=== PATIENT | female | born 1980 | race Asian ===

== ENCOUNTER 2017-11-30 12:10 | Inpatient (IN) | payer OTHER ==
[2017-11-30] MEDS ORDERED: ELECTROLYTE-148 SOLN 1,000 ML IV ONE (12:20)
[2017-11-30 13:13] VITALS: BMI 36.9
[2017-11-30] MEDS ORDERED: ELECTROLYTE-148 SOLN 1,000 ML IV SCH (13:20)
[2017-11-30] MEDS ORDERED: CITRIC ACID/SODIUM CITRATE 30 ML UNIT-DOSE CUP PO ONE (13:45)
[2017-11-30] MEDS ORDERED: OXYTOCIN 20 UNITS in 0.9% NS 20 UNIT/1,000 ML INFUS.BAG IV ONE ×2 (14:05→14:06)
[2017-11-30] MEDS ORDERED: ONDANSETRON 4 MG/2 ML VIAL IVPUSH PRN (14:08)
--- NOTE | 2017-11-30 14:08 | HP ---
Past Medical History - Admission Chief Complaint: Elective History of Present Illness: 37 yo @ 39 weeks gestation, with previous , is pre op for repeat C -Section. History Source: Patient Limitations to Obtaining History: No Limitations - Past Medical History ...: 4 ...Para: 2 ...Term: 2 ...: 0 ...Spon : 1 ...Induced : 0 ...Multiple Gestation: 0 ...LMP: 03/09/17 ... Weeks Gestation by Dates: 38.0 ...EDC by Dates: 12/14/17 ...EDC by Sono: 12/07/17 - Past Surgical History Past Surgical History: Yes: Hx Myomectomy: No Hx Transabdominal Cerclage: No - Smoking History Smoking history: Never smoked Have you smoked in the past 12 months: No - Alcohol/Substance Use Hx Alcohol Use: No History of Substance Use: reports: None - Social History Usual Living Arrangement: Yes: With Spouse History of Recent Travel: No Home Medications - Allergies Allergies/Adverse Reactions: Allergies Allergy/AdvReac Type Severity Reaction Status Date / Time No Known Allergies Allergy Verified 11/30/17 13:27 - Home Medications Home Medications: Ambulatory Orders Vit/Iron Fum/Folic AC [ Tablet] 1 each PO DAILY 02/14/14 Insulin (LOG) Aspart [NovoLOG -] 4 units SQ PRN 11/08/17 Levothyroxine Sodium [Synthroid] 137 mcg PO DAILY 11/15/17 Family Disease History - Family Disease History Family History: Unremarkable Review of Systems - Review of Systems Constitutional: reports: No Symptoms Eyes: reports: No Symptoms HENT: reports: No Symptoms Neck: reports: No Symptoms Cardiovascular: reports: No Symptoms Respiratory: reports: No Symptoms Gastrointestinal: reports: No Symptoms Genitourinary: reports: No Symptoms Breasts: reports: No Symptoms Reported Musculoskeletal: reports: No Symptoms Integumentary: reports: No Symptoms Neurological: reports: No Symptoms Endocrine: reports: No Symptoms Hematology/Lymphatic: reports: No Symptoms Psychiatric: reports: No Symptoms Pain Intensity: 0 Physical Exam - Maternity Vital Signs: Vital Signs Temperature 98.3 F 11/30/17 12:30 Pulse Rate 90 11/30/17 12:30 Respiratory Rate 18 11/30/17 12:30 Blood Pressure 109/69 11/30/17 12:30 O2 Sat by Pulse Oximetry (%) Constitutional: Yes: Well Nourished Neck: Yes: Supple Cardiovascular: Yes: Regular Rate and Rhythm Lungs: Clear to auscultation Breast(s): Yes: WNL - Abdominal Exam/OB Number of Fetuses: Single Presentation: Vertex Contractions: No - Vaginal Exam/OB Vaginal Bleediing: No - Physical Exam ...Motor Strength: WNL Psychiatric: Yes: Alert, Oriented Problem List - Problems (1) Previous section complicating , antepartum condition or complication Code(s): O34.219 - MATERNAL CARE FOR UNSP TYPE SCAR FROM PREVIOUS DEL Assessment/Plan Elective Pre op for repat Consent signed Anesthesia to see patient
[2017-11-30] MEDS ORDERED: morphine SULFATE/Preservative Free 0.5 MG/ML (1cc Syringe) ONE (14:26)
[2017-11-30] MEDS ORDERED: BUPIVACAINE 0.75% IN DEXTROSE/PF 2ML AMPULE NR ONE (14:27)
[2017-11-30] MEDS ORDERED: ceFAZolin SODIUM 1 GM VIAL ONE (14:41)
[2017-11-30] MEDS ORDERED: METHYLERGONOVINE MALEATE 0.2 MG/1 ML AMP IM PRN (15:25)
--- NOTE | 2017-11-30 15:29 | OP ---
Operative Note - Note: Operative Date: 11/30/17 Pre-Operative Diagnosis: Electve / Multiparity Operation: Repeat Low Transverse / Bilateral Tubal ligation Findings: Baby girl in cephallic position Post-Operative Diagnosis: Same as Pre-op Surgeon: Aleisha Higginbotham Rug Cutter: Walter Lindo Anesthesia: Spinal Specimens Removed: Placenta Estimated Blood Loss (mls): 500
[2017-11-30] MEDS ORDERED: OXYTOCIN 20 UNITS in 0.9% NS 20 UNIT/1,000 ML INFUS.BAG IV SCH (15:30)
[2017-11-30] MEDS ORDERED: TUBERCULIN PPD 5 TU/0.1ML SYRINGE (IN PATIENT USE ONLY) ID ONE (17:00)
[2017-11-30] MEDS: IBUPROFEN 800 MG/8 ML IJ IVPB PRN (18:28)
[2017-12-01 07:36] LABS: BASO % 0.3 % (0-2.0); EOS % 0.5 % (0-4.5); HEMOGLOBIN 8.2 GM/dL (10.7-15.3); LYMPH % 14.3 % (8-40); MCH 23.9 pg (25.7-33.7); MCHC 32.8 g/dl (32.0-36.0); MEAN CELL VOLUME 72.9 fl (80-96); MEAN PLT VOLUME 9.6 fl (7.5-11.1); MONO % 5.1 % (3.8-10.2); NEUT % 79.8 % (42.8-82.8); PLATELET COUNT 222 K/MM3 (134-434); RBC 3.43 M/mm3 (3.60-5.2); RDW 16.7 % (11.6-15.6); WHITE BLOOD COUNT 8.9 K/mm3 (4.0-10.0)
[2017-12-01] MEDS: IBUPROFEN 800 MG/8 ML IJ IVPB PRN (08:13)
--- NOTE | 2017-12-01 08:54 | PN ---
Progress Note (short form) - Note Progress Note: POD #1 - s/p repeat /BTL under spinal with duramorph. VSS. Pt. doing well, resting comfortably in bed. C/o some pruritis which has been relieved with benadryl. Good pain control. No apparent anesthetic complications noted. Continue current care.
[2017-12-01] MEDS: LEVOTHYROXINE 112 MCG, LEVOTHYROXINE 25 MCG PO SCH (09:14)
[2017-12-01] MEDS ORDERED: oxyCODONE HCL 5 MG TABLET PO PRN (12:34)
[2017-12-01] MEDS: oxyCODONE HCL 5 MG TABLET PO PRN ×3 (13:02→23:29)
[2017-12-01] MEDS: SIMETHICONE 80 MG TAB.CHEW (FP) PO PRN ×3 (13:03→23:29)
[2017-12-01] MEDS ORDERED: DIPHTH,PERTUSS(ACELL),TET 0.5 ML DISP.SYRIN IM ONE (14:00)
[2017-12-01] MEDS ORDERED: BISACODYL 10 MG SUPP.RECT RC PRN (15:26)
--- NOTE | 2017-12-01 21:48 | PN ---
Post Progress Note - Subjective Subjective: 37 yo Para 3, status post repeat , seen and evaluated. Doing well. Post Day: 1 Type of Delivery: Repeat C/S Vital Signs: Vital Signs Temperature 98.6 F 12/01/17 14:00 Pulse Rate 85 12/01/17 14:00 Respiratory Rate 20 12/01/17 18:00 Blood Pressure 105/62 12/01/17 14:00 O2 Sat by Pulse Oximetry (%) 100 11/30/17 16:35 Breast Exam: Yes: Soft Uterus: Yes: Fundus Firm Incision: Yes: Dressing dry and intact Abdomen/GI: Yes: Abdomen soft, Tolerating PO Lochia: Yes: Rubra Lochia, amount: Small Extremities: Yes: Calves non-tender Perineum: Yes: Intact Activity: Ambulating - Labs Labs: CBC WBC 8.9 K/mm3 (4.0-10.0) 12/01/17 06:55 RBC 3.43 M/mm3 (3.60-5.2) L 12/01/17 06:55 Hgb 8.2 GM/dL (10.7-15.3) L D 12/01/17 06:55 Hct 25.0 % (32.4-45.2) L 12/01/17 06:55 MCV 72.9 fl (80-96) L 12/01/17 06:55 MCH 23.9 pg (25.7-33.7) L 12/01/17 06:55 MCHC 32.8 g/dl (32.0-36.0) 12/01/17 06:55 RDW 16.7 % (11.6-15.6) H 12/01/17 06:55 Plt Count 222 K/MM3 (134-434) D 12/01/17 06:55 MPV 9.6 fl (7.5-11.1) 12/01/17 06:55 Absolute Neuts (auto) 7.1 # 12/01/17 06:55 Neutrophils % 79.8 % (42.8-82.8) 12/01/17 06:55 Lymphocytes % 14.3 % (8-40) 12/01/17 06:55 Monocytes % 5.1 % (3.8-10.2) 12/01/17 06:55 Eosinophils % 0.5 % (0-4.5) 12/01/17 06:55 Basophils % 0.3 % (0-2.0) 12/01/17 06:55 Nucleated RBC % 0 % (0-0) 12/01/17 06:55 Problem List - Problems (1) Previous section complicating , antepartum condition or complication Code(s): O34.219 - MATERNAL CARE FOR UNSP TYPE SCAR FROM PREVIOUS DEL (2) Status post repeat low transverse section Code(s): Z98.891 - HISTORY OF UTERINE SCAR FROM PREVIOUS SURGERY Assessment/Plan Status post repeat Stable Ambulation Analgesia as needed Continue routine post op care
--- NOTE | 2017-12-02 05:28 | PN ---
Post Progress Note - Subjective Subjective: 37 yo Para 3 status post repeat , seen and evaluated. Doing well. Post Day: 2 Type of Delivery: Repeat C/S Vital Signs: Vital Signs Temperature 98.4 F 12/01/17 22:00 Pulse Rate 80 12/01/17 22:00 Respiratory Rate 18 12/01/17 22:00 Blood Pressure 110/67 12/01/17 22:00 O2 Sat by Pulse Oximetry (%) 100 11/30/17 16:35 Breast Exam: Yes: Soft Uterus: Yes: Fundus @ umbilicus Incision: Yes: Dressing dry and intact Abdomen/GI: Yes: Abdomen soft, Tolerating PO Lochia: Yes: Rubra Lochia, amount: Small Extremities: Yes: Calves non-tender Perineum: Yes: Intact Activity: Ambulating - Labs Labs: CBC WBC 8.9 K/mm3 (4.0-10.0) 12/01/17 06:55 RBC 3.43 M/mm3 (3.60-5.2) L 12/01/17 06:55 Hgb 8.2 GM/dL (10.7-15.3) L D 12/01/17 06:55 Hct 25.0 % (32.4-45.2) L 12/01/17 06:55 MCV 72.9 fl (80-96) L 12/01/17 06:55 MCH 23.9 pg (25.7-33.7) L 12/01/17 06:55 MCHC 32.8 g/dl (32.0-36.0) 12/01/17 06:55 RDW 16.7 % (11.6-15.6) H 12/01/17 06:55 Plt Count 222 K/MM3 (134-434) D 12/01/17 06:55 MPV 9.6 fl (7.5-11.1) 12/01/17 06:55 Absolute Neuts (auto) 7.1 # 12/01/17 06:55 Neutrophils % 79.8 % (42.8-82.8) 12/01/17 06:55 Lymphocytes % 14.3 % (8-40) 12/01/17 06:55 Monocytes % 5.1 % (3.8-10.2) 12/01/17 06:55 Eosinophils % 0.5 % (0-4.5) 12/01/17 06:55 Basophils % 0.3 % (0-2.0) 12/01/17 06:55 Nucleated RBC % 0 % (0-0) 12/01/17 06:55 Problem List - Problems (1) Previous section complicating , antepartum condition or complication Code(s): O34.219 - MATERNAL CARE FOR UNSP TYPE SCAR FROM PREVIOUS DEL (2) Status post repeat low transverse section Code(s): Z98.891 - HISTORY OF UTERINE SCAR FROM PREVIOUS SURGERY Assessment/Plan Status post Stable Ambulation Analgesia as needed Continue post op care
[2017-12-02] MEDS: LEVOTHYROXINE 112 MCG, LEVOTHYROXINE 25 MCG PO SCH (06:16)
[2017-12-02] MEDS: oxyCODONE HCL 5 MG TABLET PO PRN ×2 (08:58→15:36)
[2017-12-02] MEDS: SIMETHICONE 80 MG TAB.CHEW (FP) PO PRN ×3 (09:00→22:38)
[2017-12-02] MEDS ORDERED: diphenhydrAMINE HCL 25 MG CAPSULE (FP) PO PRN (10:16)
[2017-12-02] MEDS: IBUPROFEN 600 MG TABLET (FP) PO PRN (22:40)
[2017-12-03] MEDS: LEVOTHYROXINE 112 MCG, LEVOTHYROXINE 25 MCG PO SCH (07:11)
[2017-12-03 07:40] LABS: BASO % 0.3 % (0-2.0); HEMATOCRIT 27.6 % (32.4-45.2); HEMOGLOBIN 9.1 GM/dL (10.7-15.3); LYMPH % 19.1 % (8-40); MCH 24.1 pg (25.7-33.7); MCHC 32.9 g/dl (32.0-36.0); MEAN CELL VOLUME 73.1 fl (80-96); MEAN PLT VOLUME 9.3 fl (7.5-11.1); MONO % 5.1 % (3.8-10.2); NEUT % 73.5 % (42.8-82.8); PLATELET COUNT 270 K/MM3 (134-434); RBC 3.77 M/mm3 (3.60-5.2); RDW 17.3 % (11.6-15.6); WHITE BLOOD COUNT 7.1 K/mm3 (4.0-10.0)
--- NOTE | 2017-12-03 08:27 | PN ---
Post Progress Note Type of Delivery: Repeat C/S Vital Signs: Vital Signs Temperature 98.7 F 12/02/17 22:00 Pulse Rate 84 12/02/17 22:00 Respiratory Rate 20 12/02/17 22:00 Blood Pressure 120/79 12/02/17 22:00 O2 Sat by Pulse Oximetry (%) 100 11/30/17 16:35 Breast Exam: Yes: Soft Uterus: Yes: Fundus Firm Incision: Yes: Sutures intact Abdomen/GI: Yes: Abdomen soft Lochia: Yes: Serosa Lochia, amount: Moderate Extremities: Yes: Calves non-tender Perineum: Yes: Intact Activity: Ambulating - Labs Labs: CBC WBC 7.1 K/mm3 (4.0-10.0) 12/03/17 06:00 RBC 3.77 M/mm3 (3.60-5.2) 12/03/17 06:00 Hgb 9.1 GM/dL (10.7-15.3) L D 12/03/17 06:00 Hct 27.6 % (32.4-45.2) L 12/03/17 06:00 MCV 73.1 fl (80-96) L 12/03/17 06:00 MCH 24.1 pg (25.7-33.7) L 12/03/17 06:00 MCHC 32.9 g/dl (32.0-36.0) 12/03/17 06:00 RDW 17.3 % (11.6-15.6) H 12/03/17 06:00 Plt Count 270 K/MM3 (134-434) D 12/03/17 06:00 MPV 9.3 fl (7.5-11.1) 12/03/17 06:00 Absolute Neuts (auto) 5.2 # 12/03/17 06:00 Neutrophils % 73.5 % (42.8-82.8) 12/03/17 06:00 Lymphocytes % 19.1 % (8-40) D 12/03/17 06:00 Monocytes % 5.1 % (3.8-10.2) 12/03/17 06:00 Eosinophils % 2.0 % (0-4.5) D 12/03/17 06:00 Basophils % 0.3 % (0-2.0) 12/03/17 06:00 Nucleated RBC % 0 % (0-0) 12/03/17 06:00 Assessment/Plan condition stable continue pp car4
[2017-12-03] MEDS: DOCUSATE SODIUM 100 MG CAPSULE (FP) PO SCH ×2 (14:22→21:52)
[2017-12-03] MEDS: IBUPROFEN 600 MG TABLET (FP) PO PRN (20:06)
[2017-12-03] MEDS: SIMETHICONE 80 MG TAB.CHEW (FP) PO PRN (20:06)
[2017-12-04] MEDS: LEVOTHYROXINE 112 MCG, LEVOTHYROXINE 25 MCG PO SCH (06:13)
[2017-12-04] MEDS: DOCUSATE SODIUM 100 MG CAPSULE (FP) PO SCH (06:13)
[2017-12-04 07:56] VITALS: BP 112/72; PULSE 65; TEMP 97.8
--- NOTE | 2017-12-04 08:02 | DS ---
Physical Exam-PLAYROOM ATTENDANT Vital Signs: Vital Signs Temperature 97.8 F 12/04/17 07:53 Pulse Rate 65 12/04/17 07:53 Respiratory Rate 20 12/04/17 07:53 Blood Pressure 112/72 12/04/17 07:53 O2 Sat by Pulse Oximetry (%) 100 11/30/17 16:35 Constitutional: Yes: Well Nourished Eyes: Yes: Conjunctiva Clear HENT: Yes: Atraumatic Neck: Yes: Supple Cardiovascular: Yes: Regular Rate and Rhythm Respiratory: Yes: Regular Gastrointestinal: Yes: Normal Bowel Sounds Pelvis: Yes: WNL External Genitalia: Yes: Normal Vaginal Exam: Yes: Normal Cervix: Yes: Normal Uterus: Yes: Firm ....Post : Yes: Uterus firm, Slight lochia rubra Wound/Incision: Yes: Well Approximated, Steri Strips (in place) Neurological: Yes: Alert, Oriented ...Motor Strength: WNL Psychiatric: Yes: Alert, Oriented Labs: CBC, BMP 12/03/17 06:00 Delivery - Delivery Type of Anesthesia: Spinal Episiotomy/Laceration: None EBL (cc): 500 Delivery, Single - Stages of Labor Date of Delivery: 11/30/17 Time of Delivery: 14:51 Time Placenta Delivered: 14:52 - Condition of Lease Administration Analyst/Admission Liaison Present: Yes Name: Tangela Fisher Gender: Female Weight: 6 lb 12 oz Position: OA Total Hours ROM (Hrs/Mins): 0/2 - 1 Minute Total Score: 9 5 Minutes Total Score: 9 - [facility] Feeding Plan Initial Plan: Elected not to breastfeed exclusively throughout hospitalization Discharge Summary Reason For Visit: Current Active Problems Previous section complicating , antepartum condition or complication (Acute) Status post repeat low transverse section (Acute) Procedures: Principal: Repeat Low Tranverse / Bilateral tubal ligation Hospital Course: Routine post op care Condition: Good - Instructions Diet, Activity, Other Instructions: Regular diet No driving, no lifting x 4 weeks F/U with MD in 2 weeks Disposition: HOME - Home Medications Comprehensive Discharge Medication List: Ambulatory Orders Vit/Iron Fum/Folic AC [ Tablet] 1 each PO DAILY 02/14/14 Insulin (LOG) Aspart [NovoLOG -] 4 units SQ PRN 11/08/17 Levothyroxine Sodium [Synthroid] 137 mcg PO DAILY 11/15/17
--- NOTE | 2017-12-06 16:54 | PATH ---
Surgical Pathology Report Patient Name: ASCENCION BARGER [facility]. Rec. #: [id number] /Age/Gender: 1980 (Age: 37) / F Account: [id number] Location: [facility] OBS/GLOBAL PRODUCT MANAGER Taken: 11/30/2017 Received: 12/01/2017 Reported: 12/06/2017 Physicians: Aleisha Higginbotham M.D. Specimen(s) Received A: PLACENTA B: PORTION OF RIGHT FALLOPIAN TUBE C: PORTION OF LEFT FALLOPIAN TUBE Clinical History , 39 weeks Gestational diabetic-insulin and diet controlled, previous x2, hypothyroid Final Diagnosis A. PLACENTA, SECTION: 422 g THIRD TRIMESTER PLACENTA WITH TRIVASCULAR UMBILICAL CORD AND FOCAL MILD ACUTE CHORIOAMNIONITIS. B. FALLOPIAN TUBE, RIGHT, PARTIAL EXCISION: FULL LUMINAL PORTION OF UNREMARKABLE FALLOPIAN TUBE. C. FALLOPIAN TUBE, LEFT, PARTIAL EXCISION: FULL LUMINAL PORTION OF UNREMARKABLE FALLOPIAN TUBE. Electronically Signed Shea Rain M.D. Gross Description A. The specimen is received fresh labeled placenta and is a 422 gram, 18.0 x 14.5 x 1.5 cm. placenta with attached membranes and umbilical cord. The attached membranes are lara, translucent with focal opacities and insert marginally. The umbilical cord measures 37 cm. in length and averages 1.1 cm. in diameter. The cord inserts eccentrically, 5 cm. to the nearest margin. No true knots or strictures are identified. Cut surface of the umbilical cord reveals 3 vessels. The surface is rodriguez-blue with minimal fibrin deposition and appropriate caliber vessels. The maternal surface is red-brown with focal defects. Sectioning reveals red-brown, spongy parenchyma. No lesions are identified. Hasher Machine Operator sections are submitted in three cassettes as follows: 1- membrane rolls and umbilical cord; 2-3- full thickness sections of placenta. B. Received in formalin labeled "portion of right fallopian tube," is a 1.3 cm in length portion of fallopian tube. No fimbria are present. The outer surface is lara-sargent and smooth. Sectioning reveals an unremarkable lumen. Hasher Machine Operator sections are submitted in one cassette. C. Received in formalin labeled "portion of left fallopian tube," is a 1.0 cm in length portion of fallopian tube. No fimbria are present. The outer surface is lara-sargent and smooth. Sectioning reveals an unremarkable lumen. Hasher Machine Operator sections are submitted in one cassette. 12/05/2017 [facility]12/05/2017
== END 2017-12-04 13:45 | disposition home or self-care (01) | DRG 540 ==
LOC: JLDR 12:10 → J3W 17:00
PROVIDERS: ADMIT Obstetrics & Gynecology; ATTEND Obstetrics & Gynecology
PROC: 10D00Z1 Extraction of Products of Conception, Low, Open Approach (ICD-10-PCS; principal; 2017-11-30)
PROC: 0U570ZZ Destruction of Bilateral Fallopian Tubes, Open Approach (ICD-10-PCS; 2017-11-30)
DX: O34.219 Maternal care for unspecified type scar from previous cesarean delivery (principal); Z3A.39 39 weeks gestation of pregnancy; Z37.0 Single live birth; Z30.2 Encounter for sterilization
CPT/HCPCS: 36415; 71046-TC-FY; 82962; 85025; 88302-TC; 88307-TC; 90715

== ENCOUNTER → 2022-07-27 | Day surgery (SDC) | payer OTHER | END | disposition home or self-care (01) | LOC: JMAMMOTONE 13:14 | PROVIDERS: ATTEND Obstetrics & Gynecology | PROC: 0H9T3ZX Drainage of Right Breast, Percutaneous Approach, Diagnostic (ICD-10-PCS; principal; 2022-07-27) | DX: N60.31 Fibrosclerosis of right breast (principal) | CPT/HCPCS: 19083; 87899; 88305-TC; A4648 ==